=== PATIENT | female | born 1995 | race Caucasian/White ===

== ENCOUNTER 2018-11-16 05:55 | Inpatient (IN) | payer BC ==
[2018-11-16] MEDS ORDERED: Sodium Chloride 0.9% 10 ML Syringe FLUSH PRN (06:26)
[2018-11-16] MEDS ORDERED: Sodium Chloride 0.9% 1,000 ML IV STA (06:26)
[2018-11-16] MEDS: HYDROmorphone 1 MG/ML Syringe IVPUSH ONE ×2 (07:01→07:20)
--- NOTE | 2018-11-16 08:02 | EDM.PDOC ---
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 The patient had a spontaneous 2 weeks ago. She had lots of vaginal bleeding initially and that got better and so did the pain. This morning she had more vaginal bleeding and more pain. She has no fever, chills, cough, congestion, chest pain, shortness of breath, nausea or vomiting. Onset: Sudden Duration: Hour(s): Location: Reports: Abdomen Quality: Reports: Sharp Severity: Moderate Improves with: Reports: None Worsens with: Reports: None Associated Symptoms: Denies: Chest Pain, Cough, Fever/Chills, Headaches, Nausea/ Vomiting, Shortness of Breath Right Lower Pelvic Pain Score (Numeric/FACES): 7 - Related Data Allergies Allergy/AdvReac Type Severity Reaction Status Date / Time No Known Allergies Allergy Verified 11/16/18 06:05 Home Meds: Home Meds . 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 Denies: Nausea, Vomiting : Reports: Other (Vaginal bleeding and pelvic pain) Musculoskeletal: Reports: No Symptoms Skin: Reports: No Symptoms ED EXAM, RENAL/ - Physical Exam Exam: See Below Exam Limited By: No Limitations General Appearance: Alert, No Apparent Distress Ears: Normal External Exam Nose: Normal Inspection Head: Atraumatic, Normocephalic Neck: Normal Inspection Respiratory/Chest: No Respiratory Distress, Lungs Clear, Normal Breath Sounds Cardiovascular: Regular Rate, Rhythm, No Edema, No Murmur GI/Abdominal: Soft, No Organomegaly, No Mass, Tender (Mild to moderate tenderness to the lower abdomen) Course - Vital Signs Last Recorded V/S: Last Vital Signs Temp 98.2 F 11/16/18 06:05 Pulse 81 11/16/18 06:05 Resp 18 11/16/18 06:05 BP 135/83 11/16/18 06:05 Pulse Ox 99 11/16/18 06:05 - Orders/Labs/Meds Orders: Active Orders 24 hr Category Date Time Status Pelvic Exam, Set Up [RC] ASDIRECTED Care 11/16/18 06:28 Active Peripheral IV Care [RC] . DIRECTED Care 11/16/18 06:26 Active Sodium Chloride 0.9% [Saline Flush] Med 11/16/18 06:26 Active 10 ml FLUSH ASDIRECTED PRN ED Antiemetic Medication Reflex [OM.PC] Stat Oth 11/16/18 06:26 Ordered Peripheral IV Insertion Adult [OM.PC] Stat Ot 11/16/18 06:26 Ordered Medication Orders Sodium Chloride (Saline Flush) 10 ml FLUSH ASDIRECTED PRN PRN Reason: Keep Vein Open Last Admin: 11/16/18 07:07 Dose: 10 ml Labs: Laboratory Tests 11/16/18 11/16/18 11/16/18 Range/Units 06:38 06:38 06:38 WBC 9.99 (3.98-10.04) K/mm3 RBC 3.43 L (3.98-5.22) M/mm3 Hgb 10.7 L (11.2-15.7) gm/L Hct 32.7 L (34.1-44.9) % MCV 95.3 H (79.4-94.8) fl MCH 31.2 (25.6-32.2) pg MCHC 32.7 (32.2-35.5) g/dl RDW Std Deviation 43.0 (36.4-46.3) fL Plt Count 317 (182-369) K/mm3 MPV 10.0 (9.4-12.3) fl Neut % (Auto) 83.0 H (34.0-71.1) % Lymph % (Auto) 9.0 L (19.3-51.7) % [place] % (Auto) 7.1 (4.7-12.5) % Eos % (Auto) 0.4 L (0.7-5.8) Baso % (Auto) 0.3 (0.1-1.2) % Neut # (Auto) 8.29 H (1.56-6.13) K/mm3 Lymph # (Auto) 0.90 L (1.18-3.74) K/mm3 [place] # (Auto) 0.71 H (0.24-0.36) K/mm3 Eos # (Auto) 0.04 (0.04-0.36) K/mm3 Baso # (Auto) 0.03 (0.01-0.08) K/mm3 Manual Slide Review Abnormal smear Sodium 137 (136-145) mEq/L Potassium 4.2 (3.5-5.1) mEq/L Chloride 104 (98-107) mEq/L Carbon Dioxide 24 (21-32) mEq/L Anion Gap 13.2 (5-15) BUN 12 (7-18) mg/dL Creatinine 0.8 (0.55-1.02) mg/dL Est Cr Clr Drug Dosing TNP Estimated GFR (MDRD) > 60 (>60) mL/min BUN/Creatinine Ratio 15.0 (14-18) Glucose 110 H (74-106) mg/dL Lactic Acid 0.5 (0.4-2.0) mmol/L Calcium 8.6 (8.5-10.1) mg/dL Total Bilirubin 0.3 (0.2-1.0) mg/dL AST 23 (15-37) U/L ALT 25 (14-59) U/L Alkaline Phosphatase 74 (46-116) U/L Total Protein 7.4 (6.4-8.2) g/dl Albumin 3.5 (3.4-5.0) g/dl Globulin 3.9 gm/dL Albumin/Globulin Ratio 0.9 L (1-2) HCG, Quant mIU/mL 11/16/18 Range/Units 06:38 WBC (3.98-10.04) K/mm3 RBC (3.98-5.22) M/mm3 Hgb (11.2-15.7) gm/L Hct (34.1-44.9) % MCV (79.4-94.8) fl MCH (25.6-32.2) pg MCHC (32.2-35.5) g/dl RDW Std Deviation (36.4-46.3) fL Plt Count (182-369) K/mm3 MPV (9.4-12.3) fl Neut % (Auto) (34.0-71.1) % Lymph % (Auto) (19.3-51.7) % [place] % (Auto) (4.7-12.5) % Eos % (Auto) (0.7-5.8) Baso % (Auto) (0.1-1.2) % Neut # (Auto) (1.56-6.13) K/mm3 Lymph # (Auto) (1.18-3.74) K/mm3 [place] # (Auto) (0.24-0.36) K/mm3 Eos # (Auto) (0.04-0.36) K/mm3 Baso # (Auto) (0.01-0.08) K/mm3 Manual Slide Review Sodium (136-145) mEq/L Potassium (3.5-5.1) mEq/L Chloride (98-107) mEq/L Carbon Dioxide (21-32) mEq/L Anion Gap (5-15) BUN (7-18) mg/dL Creatinine (0.55-1.02) mg/dL Est Cr Clr Drug Dosing Estimated GFR (MDRD) (>60) mL/min BUN/Creatinine Ratio (14-18) Glucose (74-106) mg/dL Lactic Acid (0.4-2.0) mmol/L Calcium (8.5-10.1) mg/dL Total Bilirubin (0.2-1.0) mg/dL AST (15-37) U/L ALT (14-59) U/L Alkaline Phosphatase (46-116) U/L Total Protein (6.4-8.2) g/dl Albumin (3.4-5.0) g/dl Globulin gm/dL Albumin/Globulin Ratio (1-2) HCG, Quant 163.0 mIU/mL Meds: Medications Generic Name Dose Route Start Last Admin Trade Name Freq PRN Reason Stop Dose Admin Sodium Chloride 10 ml 11/16/18 06:26 11/16/18 07:07 Saline Flush FLUSH 10 ml ASDIRECTED PRN Administration Keep Vein Open Discontinued Medications Generic Name Dose Route Start Last Admin Trade Name Freq PRN Reason Stop Dose Admin Hydromorphone HCl 1 mg 11/16/18 06:28 11/16/18 07:20 Dilaudid IVPUSH 11/16/18 06:29 0.5 mg ONETIME ONE Administration Sodium Chloride 1,000 mls @ 1,000 mls/hr 11/16/18 06:26 11/16/18 07:01 Normal Saline IV 11/16/18 07:25 1,000 mls/hr .BOLUS STA Administration - Re-Assessments/Exams Free Text/Narrative Re-Assessment/Exam: 11/16/18 08:00 I ordered an IV NS bolus, dilaudid 1mg IV, labs, UA and a pelvic US. Her WBC was normal. Her Hgb was low at 10.7. Her CMP looks good. Her quant HCG is 163. I am waiting on the US. 11/16/18 09:06 Her WBC is normal at 9.99. Her Hgb is low at 10.7. Her CMP is normal. Her lactic acid is negative at 0.5. His quant HCG is elevated at 163. I am waiting on the US. 11/16/18 09:51 The US shows large complex mass is noted within the posterior pelvis posterior to the uterus. This finding is most likely from the right ovary as right ovary is not distinguishable from this finding. Measurements are difficult as this finding is not included on a single image. Uncertain as to etiology, differential includes adnexal mass, large blood clot, difficult to exclude change from chronic ruptured ectopic if patient has persistent elevated beta HCG. Endometrial thickness at the upper limits of normal but is otherwise normal by US exam. No additional abnormality is appreciated. Her pain is better and she has less bleeding. I called Dr Oh and she reviewed the US from the and and on the there was an IUP. On the there were no retained products. She will come see the patient. 11/16/18 10:25 Dr Oh was here to see the patient and she will be taking her to the OR to do an exploratory laporotomy. Departure - Departure Time of Disposition: 10:30 Disposition: DC/Tfer to [facility] Clinical Impression: Pelvic mass, Vaginal bleeding, Pelvic pain Abdominal pain Qualifiers: Abdominal location: lower abdomen, unspecified Qualified Code(s): R10.30 - Lower abdominal pain, unspecified - Discharge Information Referrals: Janette Oh MD [Primary Care Provider] - Forms: ED Department Discharge - My Orders Last 24 Hours: My Active Orders 11/16/18 06:26 Peripheral IV Care [RC] . DIRECTED Sodium Chloride 0.9% [Saline Flush] 10 ml FLUSH ASDIRECTED PRN ED Antiemetic Medication Reflex [OM.PC] Stat Peripheral IV Insertion Adult [OM.PC] Stat 11/16/18 06:28 Pelvic Exam, Set Up [RC] ASDIRECTED - Assessment/Plan Last 24 Hours: My Active Orders 11/16/18 06:26 Peripheral IV Care [RC] . DIRECTED Sodium Chloride 0.9% [Saline Flush] 10 ml FLUSH ASDIRECTED PRN ED Antiemetic Medication Reflex [OM.PC] Stat Peripheral IV Insertion Adult [OM.PC] Stat 11/16/18 06:28 Pelvic Exam, Set Up [RC] ASDIRECTED
--- NOTE | 2018-11-16 09:42 | US ---
Pelvic ultrasound: Multiple real-time images were obtained transvaginally and transabdominally. Comparison: No prior pelvic imaging is available. Findings: Large complex mass is noted within the posterior pelvis posterior to the uterus. This finding is most likely from the right ovary as right ovary is not distinguishable from this finding. Measurements are difficult as this finding is not included on a single image. Uncertain as to etiology, differential includes adnexal mass, large blood clot, difficult to exclude change from chronic ruptured ectopic if patient has persistent elevated beta hCG. Uterus is anteverted. No myometrial abnormality is identified. Endometrial thickness is slightly prominent at 1.8 cm. Right ovary shows no additional abnormality. Left ovary is unremarkable. No other free fluid is seen within the cul-de-sac. Measurements: Uterus: Length 8.2 cm, AP height is 3.4 cm, transverse width 3.7 cm Right ovary: 8.6 x 5.2 x 8.7 cm (includes above described mass) Left ovary: 4.0 x 2.8 x 1.9 cm Impression: 1. Complicated posterior pelvic mass. Please see above for further discussion. 2. Endometrial thickness at the upper limits of normal but is otherwise normal by ultrasound exam. 3. No additional abnormality is appreciated. Diagnostic code #3
--- NOTE | 2018-11-16 10:39 | PCM.HP.2 ---
H&P History of Present Illness - General Date of Service: 11/16/18 - History of Present Illness Initial Comments - Free Text/Narative: 23 year old with recent miscarriage versus ectopic . No tissue available for evaluation so have been following HCGs which have been dropping. Presented to ED today with pain and bleeding. Had ovarian cyst on prior imaging and now with enlarged cyst posterior to uterus and moderate pain. Right Lower Pelvic Pain Score (Numeric/FACES): 7 - Related Data Allergies/Adverse Reactions: Allergies Allergy/AdvReac Type Severity Reaction Status Date / Time No Known Allergies Allergy Verified 11/16/18 06:05 Home Medications: Home Meds . 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 Social & Family History - Tobacco Use Smoking Status *Q: Never Smoker H&P Review of Systems - Review of Systems: Review Of Systems: See Below General: Reports: No Symptoms HEENT: Reports: No Symptoms Pulmonary: Reports: No Symptoms Cardiovascular: Reports: No Symptoms Gastrointestinal: Reports: Abdominal Pain Genitourinary: Reports: No Symptoms Musculoskeletal: Reports: No Symptoms Skin: Reports: No Symptoms Psychiatric: Reports: No Symptoms Neurological: Reports: No Symptoms Hematologic/Lymphatic: Reports: No Symptoms Immunologic: Reports: No Symptoms Exam - Exam Exam: See Below - Vital Signs Vital Signs: Last Vital Signs Temp 36.8 C 11/16/18 06:05 Pulse 81 11/16/18 06:05 Resp 18 11/16/18 06:05 BP 135/83 11/16/18 06:05 Pulse Ox 99 11/16/18 06:05 - Exam General: Alert, Oriented, 4 HEENT: PERRLA, Hearing Intact, Mucosa Moist & [place], Nares Patent, Normal Nasal Septum, Posterior Pharynx Clear, Conjunctiva Clear, EOMI, EACs Clear, TMs Clear Lungs: Clear to Auscultation, Normal Respiratory Effort Cardiovascular: Regular Rate, Regular Rhythm GI/Abdominal Exam: Normal Bowel Sounds, Soft, No Organomegaly, No Distention, No Abnormal Bruit, No Mass, Pelvis Stable, Tender Rectal (Female) Exam: Normal Exam, Normal Rectal Tone Back Exam: Normal Inspection, Full Range of Motion, NT Extremities: Normal Inspection, Normal Range of Motion, Non-Tender, No Pedal Edema, Normal Capillary Refill Skin: Warm, Dry, Intact Neurological: Cranial Nerves Intact, Reflexes Equal Bilateral Neuro Extensive - Mental Status: Alert, Oriented x3, Normal Mood/Affect, Normal Cognition Neuro Extensive - Motor, Sensory, Reflexes: CN II-XII Intact, Normal Gait, Normal Reflexes Psychiatric: Alert, Normal Affect, Normal Mood - Patient Data Lab Results Last 24 hrs: Laboratory Results - last 24 hr 11/16/18 11/16/18 11/16/18 Range/Units 06:38 06:38 06:38 WBC 9.99 (3.98-10.04) K/mm3 RBC 3.43 L (3.98-5.22) M/mm3 Hgb 10.7 L (11.2-15.7) gm/L Hct 32.7 L (34.1-44.9) % MCV 95.3 H (79.4-94.8) fl MCH 31.2 (25.6-32.2) pg MCHC 32.7 (32.2-35.5) g/dl RDW Std Deviation 43.0 (36.4-46.3) fL Plt Count 317 (182-369) K/mm3 MPV 10.0 (9.4-12.3) fl Neut % (Auto) 83.0 H (34.0-71.1) % Lymph % (Auto) 9.0 L (19.3-51.7) % [place] % (Auto) 7.1 (4.7-12.5) % Eos % (Auto) 0.4 L (0.7-5.8) Baso % (Auto) 0.3 (0.1-1.2) % Neut # (Auto) 8.29 H (1.56-6.13) K/mm3 Lymph # (Auto) 0.90 L (1.18-3.74) K/mm3 [place] # (Auto) 0.71 H (0.24-0.36) K/mm3 Eos # (Auto) 0.04 (0.04-0.36) K/mm3 Baso # (Auto) 0.03 (0.01-0.08) K/mm3 Manual Slide Review Abnormal smear Sodium 137 (136-145) mEq/L Potassium 4.2 (3.5-5.1) mEq/L Chloride 104 (98-107) mEq/L Carbon Dioxide 24 (21-32) mEq/L Anion Gap 13.2 (5-15) BUN 12 (7-18) mg/dL Creatinine 0.8 (0.55-1.02) mg/dL Est Cr Clr Drug Dosing TNP Estimated GFR (MDRD) > 60 (>60) mL/min BUN/Creatinine Ratio 15.0 (14-18) Glucose 110 H (74-106) mg/dL Lactic Acid 0.5 (0.4-2.0) mmol/L Calcium 8.6 (8.5-10.1) mg/dL Total Bilirubin 0.3 (0.2-1.0) mg/dL AST 23 (15-37) U/L ALT 25 (14-59) U/L Alkaline Phosphatase 74 (46-116) U/L Total Protein 7.4 (6.4-8.2) g/dl Albumin 3.5 (3.4-5.0) g/dl Globulin 3.9 gm/dL Albumin/Globulin Ratio 0.9 L (1-2) HCG, Quant mIU/mL 11/16/18 Range/Units 06:38 WBC (3.98-10.04) K/mm3 RBC (3.98-5.22) M/mm3 Hgb (11.2-15.7) gm/L Hct (34.1-44.9) % MCV (79.4-94.8) fl MCH (25.6-32.2) pg MCHC (32.2-35.5) g/dl RDW Std Deviation (36.4-46.3) fL Plt Count (182-369) K/mm3 MPV (9.4-12.3) fl Neut % (Auto) (34.0-71.1) % Lymph % (Auto) (19.3-51.7) % [place] % (Auto) (4.7-12.5) % Eos % (Auto) (0.7-5.8) Baso % (Auto) (0.1-1.2) % Neut # (Auto) (1.56-6.13) K/mm3 Lymph # (Auto) (1.18-3.74) K/mm3 [place] # (Auto) (0.24-0.36) K/mm3 Eos # (Auto) (0.04-0.36) K/mm3 Baso # (Auto) (0.01-0.08) K/mm3 Manual Slide Review Sodium (136-145) mEq/L Potassium (3.5-5.1) mEq/L Chloride (98-107) mEq/L Carbon Dioxide (21-32) mEq/L Anion Gap (5-15) BUN (7-18) mg/dL Creatinine (0.55-1.02) mg/dL Est Cr Clr Drug Dosing Estimated GFR (MDRD) (>60) mL/min BUN/Creatinine Ratio (14-18) Glucose (74-106) mg/dL Lactic Acid (0.4-2.0) mmol/L Calcium (8.5-10.1) mg/dL Total Bilirubin (0.2-1.0) mg/dL AST (15-37) U/L ALT (14-59) U/L Alkaline Phosphatase (46-116) U/L Total Protein (6.4-8.2) g/dl Albumin (3.4-5.0) g/dl Globulin gm/dL Albumin/Globulin Ratio (1-2) HCG, Quant 163.0 mIU/mL Result Diagrams: 11/16/18 06:38 11/16/18 06:38 Problem List Initiated/Reviewed/Updated: Yes Orders Last 24hrs: Active Orders 24 hr Category Date Time Status Pelvic Exam, Set Up [RC] ASDIRECTED Care 11/16/18 06:28 Active Peripheral IV Care [RC] . DIRECTED Care 11/16/18 06:26 Active Sodium Chloride 0.9% [Saline Flush] Med 11/16/18 06:26 Active 10 ml FLUSH ASDIRECTED PRN ED Antiemetic Medication Reflex [OM.PC] Stat Oth 11/16/18 06:26 Ordered Peripheral IV Insertion Adult [OM.PC] Stat Oth 11/16/18 06:26 Ordered Medication Orders Sodium Chloride (Saline Flush) 10 ml FLUSH ASDIRECTED PRN PRN Reason: Keep Vein Open Last Admin: 11/16/18 07:07 Dose: 10 ml Assessment/Plan Comment:: Probable ectopic . HCG trending has decreased but pain and pelvic mass. Discussed option of admission for pain control and trending HCG and ultrasound versus diagnostic laparoscopy with possible salpingectomy possible ovarian cystectomy. Patient voices understanding and wishes to proceed with laparoscopy.
--- NOTE | 2018-11-16 10:49 | PCM.PREANE ---
Preanesthetic Assessment - Anesthesia/Transfusion/Family Hx Anesthesia History: No Prior Anesthesia Family History of Anesthesia Reaction: No Transfusion History: No Prior Transfusion(s) - Review of Systems General: No Symptoms Pulmonary: No Symptoms Cardiovascular: No Symptoms Gastrointestinal: No Symptoms Neurological: No Symptoms - Physical Assessment NPO Status Date: 11/16/18 NPO Status Time: 09:30 (8 oz of water) Vital Signs: Last Vital Signs Temp 36.8 C 11/16/18 06:05 Pulse 81 11/16/18 06:05 Resp 18 11/16/18 06:05 BP 135/83 11/16/18 06:05 Pulse Ox 99 11/16/18 06:05 Weight: 50.802 kg ASA Class: 1E Mental Status: Alert & Oriented x3 Airway Class: Mallampati = 2 Dentition: Reports: Normal Dentition Thyro-Mental Finger Breadths: 3 Mouth Opening Finger Breadths: 3 ROM/Head Extension: Full Lungs: Clear to Auscultation, Normal Respiratory Effort Cardiovascular: Regular Rate, Regular Rhythm - Lab Values: Laboratory Last Values WBC 9.99 K/mm3 (3.98-10.04) 11/16/18 06:38 RBC 3.43 M/mm3 (3.98-5.22) L 11/16/18 06:38 Hgb 10.7 gm/L (11.2-15.7) L 11/16/18 06:38 Hct 32.7 % (34.1-44.9) L 11/16/18 06:38 MCV 95.3 fl (79.4-94.8) H 11/16/18 06:38 MCH 31.2 pg (25.6-32.2) 11/16/18 06:38 MCHC 32.7 g/dl (32.2-35.5) 11/16/18 06:38 RDW Std Deviation 43.0 fL (36.4-46.3) 11/16/18 06:38 Plt Count 317 K/mm3 (182-369) 11/16/18 06:38 MPV 10.0 fl (9.4-12.3) 11/16/18 06:38 Neut % (Auto) 83.0 % (34.0-71.1) H 11/16/18 06:38 Lymph % (Auto) 9.0 % (19.3-51.7) L 11/16/18 06:38 [place] % (Auto) 7.1 % (4.7-12.5) 11/16/18 06:38 Eos % (Auto) 0.4 (0.7-5.8) L 11/16/18 06:38 Baso % (Auto) 0.3 % (0.1-1.2) 11/16/18 06:38 Neut # (Auto) 8.29 K/mm3 (1.56-6.13) H 11/16/18 06:38 Lymph # (Auto) 0.90 K/mm3 (1.18-3.74) L 11/16/18 06:38 [place] # (Auto) 0.71 K/mm3 (0.24-0.36) H 11/16/18 06:38 Eos # (Auto) 0.04 K/mm3 (0.04-0.36) 11/16/18 06:38 Baso # (Auto) 0.03 K/mm3 (0.01-0.08) 11/16/18 06:38 Manual Slide Review Abnormal smear 11/16/18 06:38 Sodium 137 mEq/L (136-145) 11/16/18 06:38 Potassium 4.2 mEq/L (3.5-5.1) 11/16/18 06:38 Chloride 104 mEq/L (98-107) 11/16/18 06:38 Carbon Dioxide 24 mEq/L (21-32) 11/16/18 06:38 Anion Gap 13.2 (5-15) 11/16/18 06:38 BUN 12 mg/dL (7-18) 11/16/18 06:38 Creatinine 0.8 mg/dL (0.55-1.02) 11/16/18 06:38 Est Cr Clr Drug Dosing TNP 11/16/18 06:38 Estimated GFR (MDRD) > 60 mL/min (>60) 11/16/18 06:38 BUN/Creatinine Ratio 15.0 (14-18) 11/16/18 06:38 Glucose 110 mg/dL (74-106) H 11/16/18 06:38 Lactic Acid 0.5 mmol/L (0.4-2.0) 11/16/18 06:38 Calcium 8.6 mg/dL (8.5-10.1) 11/16/18 06:38 Total Bilirubin 0.3 mg/dL (0.2-1.0) 11/16/18 06:38 AST 23 U/L (15-37) 11/16/18 06:38 ALT 25 U/L (14-59) 11/16/18 06:38 Alkaline Phosphatase 74 U/L (46-116) 11/16/18 06:38 Total Protein 7.4 g/dl (6.4-8.2) 11/16/18 06:38 Albumin 3.5 g/dl (3.4-5.0) 11/16/18 06:38 Globulin 3.9 gm/dL 11/16/18 06:38 Albumin/Globulin Ratio 0.9 (1-2) L 11/16/18 06:38 HCG, Quant 163.0 mIU/mL 11/16/18 06:38 - Allergies Allergies/Adverse Reactions: Allergies Allergy/AdvReac Type Severity Reaction Status Date / Time No Known Allergies Allergy Verified 11/16/18 06:05 - Blood Blood Available: No Product(s) Available: None - Anesthesia Plan Pre-Op Medication Ordered: None - Acknowledgements Pt an Appropriate Candidate for the Planned Anesthesia: Yes Alternatives and Risks of Anesthesia Discussed w Pt/Guardian: Yes Pt/Guardian Understands and Agrees with Anesthesia Plan: Yes 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 [No Known Home Meds] 11/16/18 [History] - CURRENT (IN HOUSE) MEDS Current Meds: Current Medications Sodium Chloride (Saline Flush) 10 ml FLUSH ASDIRECTED PRN PRN Reason: Keep Vein Open Last Admin: 11/16/18 07:07 Dose: 10 ml Discontinued Medications Hydromorphone HCl (Dilaudid) 1 mg IVPUSH ONETIME ONE Stop: 11/16/18 06:29 Last Admin: 11/16/18 07:20 Dose: 0.5 mg Sodium Chloride (Normal Saline) 1,000 mls @ 1,000 mls/hr IV .BOLUS STA Stop: 11/16/18 07:25 Last Admin: 11/16/18 07:01 Dose: 1,000 mls/hr
[2018-11-16] MEDS ORDERED: Bupivacaine 0.5% 30 ML SDV ONE (10:52)
[2018-11-16] MEDS ORDERED: Lactated Ringers 1,000 ML ONE ×2 (10:58→12:22)
[2018-11-16] MEDS ORDERED: Dexamethasone 4 MG/ML 5 ML MDV ONE (10:58)
[2018-11-16] MEDS ORDERED: Rocuronium 50 MG/5 ML Vial ONE (10:58)
[2018-11-16] MEDS ORDERED: Ondansetron 4 MG/2 ML SDV ONE (10:58)
[2018-11-16] MEDS ORDERED: fentaNYL 250 MCG/5 ML SDV ONE ×2 (10:59→12:23)
[2018-11-16] MEDS ORDERED: Midazolam 1 MG/ML 2 ML SDV ONE (10:59)
[2018-11-16] MEDS ORDERED: Propofol 200 MG/20 ML SDV ONE (10:59)
[2018-11-16] MEDS ORDERED: Ketorolac 30 MG/ML SDV ONE (11:00)
[2018-11-16] MEDS ORDERED: Scopolamine 1.5 MG Transdermal Patch TOP SCH (11:05)
[2018-11-16] MEDS ORDERED: Succinylcholine/Normal Saline 100 MG/5 ML Syringe ONE (11:06)
[2018-11-16] MEDS ORDERED: HYDROmorphone 0.5 MG/0.5 ML Syringe ONE ×3 (11:36→12:33)
[2018-11-16] MEDS ORDERED: Neostigmine Methylsulfate 1 MG/ML 5 ML Syringe ONE (11:58)
--- NOTE | 2018-11-16 13:30 | PCM.POSTAN ---
POST ANESTHESIA ASSESSMENT - MENTAL STATUS Mental Status: Alert - VITAL SIGNS Vital Signs: Last Vital Signs Temp 37.1 C 11/16/18 11:05 Pulse 96 11/16/18 11:05 Resp 18 11/16/18 11:05 BP 117/85 11/16/18 11:05 Pulse Ox 100 11/16/18 11:05 - RESPIRATORY Respiratory Status: Respiratory Rate WNL, Airway Patent, O2 Saturation Stable, Supplemental Oxygen - CARDIOVASCULAR CV Status: Pulse Rate WNL, Blood Pressure Stable - GASTROINTESTINAL GI Status: No Symptoms - PAIN Pain Score: 0 - POST OP HYDRATION Hydration Status: Adequate & Stable
[2018-11-16] MEDS ORDERED: HYDROmorphone 0.5 MG/0.5 ML Syringe IVPUSH PRN ×2 (13:31→14:41)
[2018-11-16] MEDS ORDERED: Ondansetron 4 MG/2 ML SDV IVPUSH PRN ×2 (13:31→14:41)
[2018-11-16] MEDS ORDERED: diphenhydrAMINE 50 MG/ML SDV IVPUSH PRN (13:31)
[2018-11-16] MEDS ORDERED: fentaNYL 100 MCG/2 ML SDV IVPUSH PRN (13:31)
--- NOTE | 2018-11-16 13:35 | PCM.OPNOTE ---
- General Post-Op/Procedure Note Date of Surgery/Procedure: 11/16/18 Operative Procedure(s): diagnostic laparoscopy converted to laparotomy with right salpingectomy Findings: large right ectopic , significant adhesions posterior to uterus, some swelling of left fallopian tube Pre Op Diagnosis: probable ectopic Post-Op Diagnosis: Same Anesthesia Technique: General ET Tube Primary Surgeon: Janette Oh Anesthesia Provider: Cris Valdez Admittance Attendant: Cynthia Clifford Reason Admittance Attendant Was Necessary: retraction, surgical expertise, significant scar tissue, need for laparotomy Pathology: right fallopian tube Fluid Replacement, Intraop: 2,500 Output, Urine Amount: 350 EBL in mLs: 100 Complications: None Condition: Good Free Text/Narrative:: The risks, benefits, indications, potential complications, and alternatives were explained to the patient and informed consent obtained. The patient was taken to the Operating Room where general anesthesia was induced without complication. The patient was placed in dorsal lithotomy with Vj Stirrups. The patient was then prepped and draped in the usual sterile fashion. Harp was placed. A sterile bivalve speculum was placed into the vagina and attempted to place a Intervolve uterine manipulator was then advanced into the cervix and attached to the tenaculum to allow uterine manipulation throughout the procedure. The speculum was removed from the vagina. Attention was then turned to the patients abdomen where a small infrabubilical incision was made and a Veress needle was inserted into the abdomen at the umbilicus while tenting the abdominal wall. Intraabdominal placement was confirmed with a drop test using a saline filled syringe and low intraabdominal pressure on low flow. The 5 mm blunt trocar was inserted with the 5 mm laparoscope inserted through the trocar for direct visualization of abdominal entry through the clear view lens. Once intraabdominal placement was confirmed, the blunt obturator was removed and the laparoscope was inserted and exam of the patient's abdomen revealed the findings detailed above. The patient was placed in Trendelenburg position and the uterus was manipulated to reveal the pelvic findings detailed above as well. Attention was turned to placement of the accessory ports. Both ports were placed approximately 10 cm lateral and 2-3 cm below the level of the first incision. A 5 mm skin incision was made in the left lower quadrant and a 5 mm trocar was inserted into the abdomen under direct visualization with care to avoid the abdominal wall vasculature. A second port was placed through a 5 mm skin incision in the right lower quadrant. A 5 mm trocar was inserted into the abdomen under direct visualization with care to avoid the abdominal wall vasculature. Blunt graspers and probes were used to further examine the pelvis by sweeping bowel away from the dissection field and elevating the adnexal structures. Pelvis inspected. Small uterus with large right ectopic see images scanned. With care the area behind this was inspected and after significant attempts. By myself and Dr. Clifford whose presence had been requested to assist were not able to lift this out of the pelvis there was significant clot posterior and adhesion to the posterior cul-de-sac. A Pfannenstiel skin incision was made with the scalpel and carried through to the underlying layer of fascia. The fascia was incised in the midline and extended laterally using Moreira scissors. Rome clamps were used to elevate the superior aspect of the fascial incision, which was elevated, and the underlying rectus muscles were dissected off bluntly and using Moreira scissors. Attention was then turned to the inferior aspect of the fascial incision, which in similar fashion was grasped with Rome clamps, elevated, and the underlying rectus muscles were dissected off bluntly and using the moreira. The rectus muscles were dissected in the midline. The peritoneum was entered bluntly; this incision was extended superiorly and inferiorly. Bowel was packed into the upper abdomen. The ectopic was grasped careful finger dissection performed posteriorly to lifted into the upper abdomen end of the tube grasped with dana clamp and the mesosalpinx was ligated sequentially with the handheld LigaSure. Excellent hemostasis noted. Abdomen inspected The pelvis was copiously irrigated. The fascia was closed with 1 PDS suture, and the skin was closed with 3-0 monocryl. Sponge, lap, and instrument counts were correct x2. The patient was stable at the completion of the procedure and was subsequently transferred to the recovery room in stable condition.
[2018-11-16] MEDS ORDERED: Acetaminophen/oxyCODONE 325-5 MG Tab PO PRN (14:41)
[2018-11-16] MEDS ORDERED: Ketorolac 30 MG/ML SDV IVPUSH PRN (17:00)
[2018-11-16] MEDS: Acetaminophen/oxyCODONE 325-5 MG Tab PO PRN (20:22)
[2018-11-17] MEDS: Acetaminophen/oxyCODONE 325-5 MG Tab PO PRN ×5 (06:10→20:45)
--- NOTE | 2018-11-17 07:54 | PCM48HPAN ---
Post Anesthesia Note - EVALUATION WITHIN 48HRS OF ANESTHETIC Vital Signs in Normal Range: Yes Patient Participated in Evaluation: Yes Respiratory Function Stable: Yes Airway Patent: Yes Cardiovascular Function Stable: Yes Hydration Status Stable: Yes Pain Control Satisfactory: Yes Nausea and Vomiting Control Satisfactory: Yes Mental Status Recovered: Yes (no nausea- little pain at a 4) Vital Signs: Last Vital Signs Temp 98.6 F 11/17/18 06:10 Pulse 71 11/17/18 06:10 Resp 14 11/17/18 06:10 BP 99/65 11/17/18 06:10 Pulse Ox 99 11/17/18 06:10
[2018-11-17] MEDS ORDERED: Docusate Sodium 100 MG Cap PO PRN (12:18)
[2018-11-17] MEDS: Simethicone 80 MG Tab.Chew PO PRN ×2 (12:47→18:44)
[2018-11-18] MEDS: Acetaminophen/oxyCODONE 325-5 MG Tab PO PRN ×3 (01:17→11:27)
[2018-11-18] MEDS: Simethicone 80 MG Tab.Chew PO PRN (01:19)
--- NOTE | 2018-11-18 06:53 | PCM.DCSUM1 ---
Discharge Summary - Hospital Course Diagnosis: Stroke: No - Discharge Data Discharge Date: 11/18/18 Discharge Disposition: Home, Self-Care 01 Condition: Good - Patient Summary/Data Operative Procedure(s) Performed: diagnostic laparoscopy converted to laparotomy with right salpingectomy - Patient Instructions Diet: Usual Diet as Tolerated Activity: No Strenuous Activities Driving: May Drive Today Notify Provider of: Fever, Increased Pain, Swelling and Redness, Drainage, Nausea and/or Vomiting - Discharge Plan *PRESCRIPTION DRUG MONITORING PROGRAM REVIEWED*: No *COPY OF PRESCRIPTION DRUG MONITORING REPORT IN PATIENT LALO: No Home Medications: Home Meds Vit No.124/Iron/FA [ Vitamin Tablet] 1 each PO DAILY 11/16/18 [ History] Forms: ED Department Discharge Referrals: Janette Oh MD [Primary Care Provider] - - Discharge Summary/Plan Comment DC Time >30 min.: No - General Info Date of Service: 11/18/18 Functional Status: Reports: Pain Controlled - Review of Systems General: Reports: No Symptoms HEENT: Reports: No Symptoms Pulmonary: Reports: No Symptoms Cardiovascular: Reports: No Symptoms Gastrointestinal: Reports: No Symptoms Genitourinary: Reports: No Symptoms Musculoskeletal: Reports: No Symptoms Skin: Reports: No Symptoms Neurological: Reports: No Symptoms Psychiatric: Reports: No Symptoms - Patient Data Vitals - Most Recent: Last Vital Signs Temp 36.6 C 11/18/18 04:00 Pulse 85 11/18/18 04:00 Resp 16 11/18/18 04:00 BP 103/59 L 11/18/18 04:00 Pulse Ox 100 11/18/18 04:00 Weight - Most Recent: 50.802 kg I&O - Last 24 hours: Intake & Output 11/17/18 11/17/18 11/18/18 14:59 22:59 06:59 Output Total 1500 Balance -1500 Med Orders - Current: Current Medications Docusate Sodium (Colace) 100 mg PO BID PRN PRN Reason: Constipation Last Admin: 11/17/18 12:46 Dose: 100 mg Hydromorphone HCl (Dilaudid) 0.2 mg IVPUSH Q2H PRN PRN Reason: Pain (severe 7-10) Ketorolac Tromethamine (Toradol) 30 mg IVPUSH Q8H PRN PRN Reason: Pain (moderate 4-6) Stop: 11/21/18 17:01 Last Admin: 11/16/18 23:53 Dose: 30 mg Ondansetron HCl (Zofran) 4 mg IVPUSH Q4H PRN PRN Reason: Nausea/Vomiting Oxycodone/Acetaminophen (Percocet 325-5 Mg) 1 - 2 tab PO Q4H PRN PRN Reason: Pain (moderate 4-6) Last Admin: 11/18/18 01:17 Dose: 2 tab Simethicone (Simethicone) 80 mg PO ASDIRECTED PRN PRN Reason: gas pains Last Admin: 11/18/18 01:19 Dose: 80 mg Discontinued Medications Bupivacaine HCl (Marcaine 0.5%) Confirm Administered Dose 30 ml .ROUTE .STK-MED ONE Stop: 11/16/18 10:53 Last Admin: 11/16/18 11:45 Dose: 5 ml Dexamethasone (Dexamethasone) Confirm Administered Dose 20 mg .ROUTE .STK-MED ONE Stop: 11/16/18 10:59 Diphenhydramine HCl (Benadryl) 25 mg IVPUSH Q6H PRN PRN Reason: itching Stop: 11/16/18 23:00 Fentanyl (Sublimaze) Confirm Administered Dose 250 mcg .ROUTE .STK-MED ONE Stop: 11/16/18 11:00 Fentanyl (Sublimaze) Confirm Administered Dose 250 mcg .ROUTE .STK-MED ONE Stop: 11/16/18 12:24 Fentanyl (Sublimaze) 50 mcg IVPUSH Q5M PRN PRN Reason: pain Stop: 11/16/18 23:00 Glycopyrrolate () Confirm Administered Dose 1 mg .ROUTE .STK-MED ONE Stop: 11/16/18 11:59 Hydromorphone HCl (Dilaudid) 1 mg IVPUSH ONETIME ONE Stop: 11/16/18 06:29 Last Admin: 11/16/18 07:20 Dose: 0.5 mg Hydromorphone HCl (Dilaudid) Confirm Administered Dose 0.5 mg .ROUTE .STK-MED ONE Stop: 11/16/18 11:37 Hydromorphone HCl (Dilaudid) Confirm Administered Dose 0.5 mg .ROUTE .STK-MED ONE Stop: 11/16/18 12:05 Hydromorphone HCl (Dilaudid) Confirm Administered Dose 0.5 mg .ROUTE .STK-MED ONE Stop: 11/16/18 12:34 Hydromorphone HCl (Dilaudid) 0.5 mg IVPUSH Q15M PRN PRN Reason: Pain (severe 7-10) Stop: 11/16/18 23:00 Sodium Chloride (Normal Saline) 1,000 mls @ 1,000 mls/hr IV .BOLUS STA Stop: 11/16/18 07:25 Last Admin: 11/16/18 07:01 Dose: 1,000 mls/hr Lactated Ringer's (Ringers, Lactated) Confirm Administered Dose 1,000 mls @ as directed .ROUTE .STK-MED ONE Stop: 11/16/18 10:59 Lactated Ringer's (Ringers, Lactated) Confirm Administered Dose 1,000 mls @ as directed .ROUTE .STK-MED ONE Stop: 11/16/18 12:23 Ketorolac Tromethamine (Toradol) Confirm Administered Dose 30 mg .ROUTE .STK- MED ONE Stop: 11/16/18 11:01 Midazolam HCl (Versed 1 Mg/Ml) Confirm Administered Dose 2 mg .ROUTE .STK-MED ONE Stop: 11/16/18 11:00 Miscellaneous Information (Remove Patch) 1 ea TRDERM ONETIME CASPER Neostigmine Methylsulfate (Neostigmine) Confirm Administered Dose 5 mg .ROUTE .STK-MED ONE Stop: 11/16/18 11:59 Ondansetron HCl (Zofran) Confirm Administered Dose 4 mg .ROUTE .STK-MED ONE Stop: 11/16/18 10:59 Ondansetron HCl (Zofran) 4 mg IVPUSH ONETIME PRN PRN Reason: Nausea/Vomiting Stop: 11/16/18 23:00 Oxycodone/Acetaminophen (Percocet 325-5 Mg) 2 tab PO Q4H PRN PRN Reason: Pain (severe 7-10) Propofol (Diprivan 20 Ml) Confirm Administered Dose 200 mg .ROUTE .STK-MED ONE Stop: 11/16/18 11:00 Rocuronium Lowes (Zemuron) Confirm Administered Dose 50 mg .ROUTE .STK-MED ONE Stop: 11/16/18 10:59 Scopolamine (Transderm-Scop) 1.5 mg TOP ONETIME CASPER Last Admin: 11/16/18 11:19 Dose: 1.5 mg Sodium Chloride (Saline Flush) 10 ml FLUSH ASDIRECTED PRN PRN Reason: Keep Vein Open Last Admin: 11/16/18 07:07 Dose: 10 ml Succinylcholine Chloride (Succinylcholine In Ns Pf) Confirm Administered Dose 100 mg .ROUTE .STK-MED ONE Stop: 11/16/18 11:07 - Exam General: Reports: Alert, Oriented HEENT: Reports: Pupils Equal, Pupils Reactive, EOMI, Mucous Membr. Moist/Lehr Neck: Reports: Supple Lungs: Reports: Clear to Auscultation, Normal Respiratory Effort Cardiovascular: Reports: Regular Rate, Regular Rhythm GI/Abdominal Exam: Normal Bowel Sounds, Soft, Non-Tender, No Organomegaly, No Distention, No Abnormal Bruit, No Mass, Pelvis Stable, Other (incision excellent ) Rectal (Female) Exam: Normal Exam, Normal Rectal Tone Back Exam: Reports: Normal Inspection, Full Range of Motion Extremities: Normal Inspection, Normal Range of Motion, Non-Tender, No Pedal Edema, Normal Capillary Refill Skin: Reports: Warm, Dry, Intact Wound/Incisions: Reports: Healing Well Neurological: Reports: No New Focal Deficit Psy/Mental Status: Reports: Alert, Normal Affect, Normal Mood
== END 2018-11-18 12:08 | disposition home or self-care (01) | DRG 545 ==
LOC: JD.ED 05:55 → JD.SDS 10:40 → JD.OB 13:35
PROVIDERS: ADMIT Obstetrics & Gynecology; ATTEND Obstetrics & Gynecology
PROC: 10T20ZZ Resection of Products of Conception, Ectopic, Open Approach (ICD-10-PCS; principal; 2018-11-16)
PROC: 0UB50ZZ Excision of Right Fallopian Tube, Open Approach (ICD-10-PCS; 2018-11-16)
DX: O00.101 Right tubal pregnancy without intrauterine pregnancy (principal); Z53.31 Laparoscopic surgical procedure converted to open procedure; Z79.899 Other long term (current) drug therapy
CPT/HCPCS: 00840; 36415; 76830; 76830-26; 80053; 83605; 84702; 85007; 85025; 85027; 96361; 96374; 99285-25; A9270-GY; J0330; J1100; J1170; J1885; J2250; J2405; J2704; J2710; J3010; J3490; J7040; J7120